=== PATIENT | female | born 2000 | race Caucasian/White ===

== ENCOUNTER 2021-06-20 12:33 | Emergency (ER) | payer OTHER ==
[~2021-06-20] VITALS: Ht 175.3 cm; Wt 61.4 kg
[2021-06-20] MEDS ORDERED: BACTRIM DS 8001 TAB PO (15:32)
[2021-06-20 16:30] VITALS: BP 121/64; PULSE 68; TEMP 98.1
== END 2021-06-20 16:30 | disposition home or self-care (01) ==
LOC: COL.ER 12:33
DX: S90.851A Superficial foreign body, right foot, initial encounter (principal); L08.9 Local infection of the skin and subcutaneous tissue, unspecified; W45.8XXA Other foreign body or object entering through skin, initial encounter

== ENCOUNTER 2021-07-02 17:20 | Emergency (ER) | payer OTHER ==
[~2021-07-02] VITALS: Ht 175.3 cm; Wt 61.4 kg
[~2021-07-02 17:20] MED LIST: BACTRIM DS 8001 TAB PO
[2021-07-02] MEDS ORDERED: PREDNISONE20 MG PO (18:17)
[2021-07-02] MEDS ORDERED: ZYRTEC 10MG10 MG PO (18:19)
[2021-07-02 18:38] VITALS: BP 105/69; PULSE 110; TEMP 98
== END 2021-07-02 19:00 | disposition home or self-care (01) ==
LOC: COL.ER 17:20
DX: L27.0 Generalized skin eruption due to drugs and medicaments taken internally (principal)
CPT/HCPCS: J2930

== ENCOUNTER 2022-06-09 07:59 | Emergency (ER) | payer OTHER ==
[~2022-06-09] VITALS: Ht 152.4 cm; Wt 63.6 kg
[~2022-06-09 07:59] MED LIST changes: +PREDNISONE20 MG PO; +ZYRTEC 10MG10 MG PO
[2022-06-09 08:27] VITALS: BP 108/72; PULSE 97; TEMP 97.6
== END 2022-06-09 10:08 | disposition home or self-care (01) ==
LOC: COL.ER 07:59
DX: S93.402A Sprain of unspecified ligament of left ankle, initial encounter (principal); S80.212A Abrasion, left knee, initial encounter; Z28.311 Partially vaccinated for COVID-19; W18.30XA Fall on same level, unspecified, initial encounter; X50.1XXA Overexertion from prolonged static or awkward postures, initial encounter; Y93.01 Activity, walking, marching and hiking; Y92.009 Unspecified place in unspecified non-institutional (private) residence as the place of occurrence of the external cause